=== PATIENT | male | born 1990 | race Caucasian/White ===

== ENCOUNTER → 2017-05-19 | Outpatient (CLI) | payer OTHER ==
--- NOTE | 2017-05-19 10:24 | REP ---
CT IACs WITHOUT CONTRAST: HISTORY: Bilateral mixed hearing loss. The right internal auditory canal, cochlea, vestibule and semicircular canals are normal in appearance. The ossicles are normal in configuration and position. The scutum and tegmen are intact. The middle ear cavity and mastoid air cells are clear. The left internal auditory canal, cochlea, vestibule and semicircular canals are normal in appearance. The ossicles are normal in configuration and position. The scutum and tegmen are intact. There is partial opacification of the middle ear cavity and mastoid air cells. The mastoid is sclerotic. There is retraction of the left tympanic membrane. Minimal mucosal thickening is present in the ethmoid and right maxillary sinuses. The adenoidal tissue in the nasopharynx is prominent. IMPRESSION: 1. There is partial opacification of the left middle ear cavity and mastoid air cells with associated sclerosis. 2. There is prominence of the adenoidal tissue in the nasopharynx. Signed by Jose Swain MD 05/19/2017 10:40 A
== END ==
LOC: M RAD 09:18
PROVIDERS: ATTEND Physician Assistant Medical
DX: H90.6 Mixed conductive and sensorineural hearing loss, bilateral (principal)